=== PATIENT | female | born 1925 | race Caucasian/White ===

== ENCOUNTER 2017-01-15 12:49 | Inpatient (IN) | payer OTHER ==
[~2017-01-15] VITALS: Ht 162.6 cm; Wt 117.9 kg
[2017-01-15] MEDS ORDERED: ACETAMINOPHEN TAB 650MG DOSE (2X325MG) PO PRN (13:00)
[2017-01-15 16:05] VITALS: BP 135/63
[2017-01-15] MEDS ORDERED: GLUCAGON FOR INJ 1 MG VIAL (J1610) SC PRN (17:30)
[2017-01-15] MEDS: HumaLOG INSULIN (NovoLOG) PER UNIT SC SCH ×2 (17:30→21:00)
[2017-01-15] MEDS ORDERED: GLUCOSE 4 GM CHEW TABLET PO PRN (17:30)
[2017-01-15] MEDS ORDERED: DEXTROSE 50% 50 ML SYRINGE IV PRN (17:30)
--- NOTE | 2017-01-15 17:46 | HPE ---
DATE OF ADMISSION: 01/15/2017 PRIMARY CARE PROVIDER: Dr. Simpson HISTORY OF PRESENT ILLNESS: The patient is an 89-year-old female with past medical history significant for diabetes, high cholesterol, hypertension, originally admitted to [facility] last [place], on 01/11/2017, for a right groin abscess. Patient had incision and drainage at [facility] and patient was admitted and patient was started on IV antibiotics. However, patient's wound is not resolving and patient continues to have gradual elevation of white blood cells (WBCs) and patient is transferred to [facility] on 01/15/2017, for higher level of care. PAST MEDICAL HISTORY: 1. Diabetes. 2. Hypertension. 3. Diabetic neuropathy. 4. Hypercholesterolemia. 5. Left breast cancer. PAST SURGICAL HISTORY: 1. Cardiac stent to the right coronary artery. 2. Cholecystectomy. 3. Hysterectomy. 4. Radical left mastectomy. 5. Right knee replacement. SOCIAL HISTORY: Patient quit smoking 20 years ago. Drinks alcohol occasionally. Denied recreational drug use. Patient is a FULL CODE. REVIEW OF SYSTEMS: GENERAL: No fever, no chills. HEENT: No vision changes, no auditory changes. CARDIOVASCULAR: No chest pain, no palpitations. RESPIRATORY: No shortness of breath, no cough, no sputum production. GASTROINTESTINAL (GI): No nausea, no vomiting, no abdominal pain, no diarrhea. MUSCULOSKELETAL: Patient started having abscess near the right inguinal area, started on 01/09/2017, patient went to [facility] on 01/11/2017. NEUROLOGICAL: Decreased sensation bilaterally. LABORATORY DATA: On 01/15/2017: Shows WBC 9.5, hemoglobin 11.3, hematocrit 34.7, platelet count 276. Sodium 139, potassium 5, chloride 100, carbon dioxide 25, glucose 166, BUN 34, creatinine 1.4, GFR 24, BUN 3.4, AST 8, ALT 8. PHYSICAL EXAMINATION: GENERAL: No sign of acute distress, morbidly obese. Patient is alert and oriented times three. HEENT: Normocephalic, atraumatic. Extraocular motors grossly intact. CARDIOVASCULAR: Very distant heart sounds. Positive S1, S2. Regular ate. LUNGS: Decreased breath sounds due to poor respiratory effort. I cannot appreciate any rhonchi or wheezes. GASTROINTESTINAL: Abdomen soft, nontender, nondistended. Bowel sounds present. MUSCULOSKELETAL: There is some yeast infection in the abdominal folds and there is some rashes and skin macerations. There is an abscess wound located at the right inguinal area covered with dry pus. There is marked indentation near the wound, however I cannot palpate any fluctuance. There is some swelling and erythema around the lesions. ASSESSMENT AND PLAN: 1. Right inguinal abscess status post incision and drainage. Patient will be admitted to medical/surgical floor under inpatient status. General surgeon, Dr. Burch, has been consulted to see if patient may benefit from another incision and drainage. Currently we do not have cultures, culture was obtained in [facility], will obtain the records. 2. Diabetes, on sliding scale and consistent carbohydrate diet. 3. Hypertension. At home patient is taking lisinopril and losartan which may not be correct due to patient having impaired renal function, however I am not sure if this is patient's baseline. Those blood pressure medications will be on hold at this moment. 4. Hypercholesterolemia. 5. Chronic musculoskeletal pain. Patient has a Fentanyl patch. 6. Deep venous thrombosis (DVT) prophylaxis. Patient will be on heparin.
[2017-01-15] MEDS ORDERED: BACITAB3 PO (20:13)
[2017-01-15] MEDS ORDERED: PREG50CA PO (20:13)
[2017-01-15] MEDS ORDERED: AMIT10TA PO (20:13)
[2017-01-15] MEDS ORDERED: LISI10TA4 PO (20:13)
[2017-01-15] MEDS ORDERED: OMEP40CA2 PO (20:13)
[2017-01-15] MEDS ORDERED: GEMF600T PO (20:13)
[2017-01-15] MEDS ORDERED: FENT12PA TD (20:22)
[2017-01-15] MEDS ORDERED: NOVO70VL SC (20:22)
[2017-01-15] MEDS ORDERED: ZOCO40TA PO (20:22)
[2017-01-15] MEDS ORDERED: FURO40TA2 PO (20:22)
[2017-01-15] MEDS ORDERED: OMEP20CA3 PO (20:22)
[2017-01-15] MEDS ORDERED: ENOX30IN3 SC (20:22)
[2017-01-15] MEDS ORDERED: VITATAB11 PO (20:22)
[2017-01-15] MEDS ORDERED: FOLI1TAB2 PO (20:22)
[2017-01-15] MEDS ORDERED: ACET30TAB PO (20:22)
[2017-01-15] MEDS ORDERED: INSULANT SC (20:22)
[2017-01-15] MEDS ORDERED: [UNRECOGNIZED DRUG - CODE] IV (20:22)
[2017-01-15] MEDS ORDERED: INSURSD SC (20:22)
[2017-01-15] MEDS ORDERED: AMITRIPTYLINE 10 MG TAB PO SCH (21:00)
[2017-01-15] MEDS ORDERED: ATORVASTATIN 20 MG TAB PO SCH (21:00)
[2017-01-15] MEDS ORDERED: ACETAMINOPH W/CODEINE #3 TAB UD PO PRN (21:15)
[2017-01-15] MEDS: AMITRIPTYLINE 10 MG TAB PO SCH (21:27)
[2017-01-15] MEDS: LACTOBACILLUS ACIDOPHILUS CAP (BACID) PO SCH (21:27)
[2017-01-15] MEDS: PREGABALIN 50 MG CAP (LYRICA) PO SCH (21:28)
[2017-01-15] MEDS: GEMFIBROZIL 600 MG TAB PO SCH (21:28)
[2017-01-15] MEDS: LEVEMIR (INSULIN DETEMIR) 1 UNITS/0.01ML SC SCH (21:29)
[2017-01-15] MEDS: HEPARIN SOD (PORCINE) 5000 UNITS/ML VIAL SC SCH (21:29)
[2017-01-15] MEDS: SIMVASTATIN 40 MG TAB PO SCH (21:35)
[2017-01-15 22:00] VITALS: BP 125/74
[2017-01-16] MEDS: HEPARIN SOD (PORCINE) 5000 UNITS/ML VIAL SC SCH ×3 (05:53→21:19)
[2017-01-16 06:00] VITALS: BP 123/60
[2017-01-16 06:24] LABS: MEAN CORPUSCULAR HEMOGLOBIN 31.8 pg (27.0-33.0); MEAN CORPUSCULAR VOLUME 99.2 fl (80.0-96.0); RED CELL DISTRIBUTION WIDTH 13.2 % (11.5-14.5); WHITE BLOOD COUNT 9.7 K/mm3 (4.0-10.0)
[2017-01-16 06:53] LABS: CALCIUM LEVEL 8.2 MG/DL (8.8-10.2); CREATININE FOR GFR 1.44 MG/DL (0.55-1.02); GLOMERULAR FILTRATION RATE 36.5 (>32); POTASSIUM SERUM 4.5 MEQ/L (3.5-5.1)
--- NOTE | 2017-01-16 08:10 | REP ---
LIMITED PELVIS ULTRASOUND: 01/15/2017. No prior study. Clinical history: The patient had an I D a few days ago, still draining from the right groin according to the patient. Findings: Sonographic evaluation of the right groin soft tissue edematous region showing diffuse subcutaneous edema. There is a pocket measuring 1.7 x 1.1 x 0.4 cm in the right groin and other subcutaneous fluid which appears to be less well-organized and more superficial. Impression: 1. Dumbbell shaped fluid collection 1.7 x 1.1 x 0.4 cm in the right groin with other areas with fairly extensive subcutaneous edema. This may reflect hematoma and/or abscess. Signed by aJciel Gallagher MD 01/16/2017 05:18 P
[2017-01-16] MEDS: LISINOPRIL 10 MG TAB PO SCH (09:00)
[2017-01-16] MEDS: VITAMIN B COMPLEX/VIT C CAP PO SCH (09:20)
[2017-01-16] MEDS: OMEPRAZOLE 20 MG CAP PO SCH (09:21)
[2017-01-16] MEDS: LACTOBACILLUS ACIDOPHILUS CAP (BACID) PO SCH ×2 (09:21→21:18)
[2017-01-16] MEDS: AMITRIPTYLINE 10 MG TAB PO SCH ×2 (09:21→21:18)
[2017-01-16] MEDS: FOLIC ACID 1 MG TAB PO SCH (09:21)
[2017-01-16] MEDS: FUROSEMIDE 40 MG TAB PO SCH (09:21)
[2017-01-16] MEDS: PREGABALIN 50 MG CAP (LYRICA) PO SCH ×2 (09:22→21:18)
[2017-01-16] MEDS: GEMFIBROZIL 600 MG TAB PO SCH ×2 (09:22→21:18)
[2017-01-16] MEDS: HumaLOG INSULIN (NovoLOG) PER UNIT SC SCH ×4 (09:23→21:00)
[2017-01-16] MEDS ORDERED: LIDOCAINE 1% MDV 20ML VIAL SQ ONE (10:30)
[2017-01-16] MEDS ORDERED: LevoFLOXacin IV 750 MG in APPROPRIATE DILUENT 1 EA IV SCH (13:00)
[2017-01-16 14:00] VITALS: BP 139/63
--- NOTE | 2017-01-16 14:34 | IPNPDOC ---
Text Note Date of Service The patient was seen on 01/16/17. NOTE Subjective: Patient is an 89 year old female with a PMHx of DM2, HTN, Diabetic neuropathy, DLP, Left breast CA, who presented to [facility] as a transfer from [facility] because of a right groin abscess. Patient received an I&D and was transferred. Upon evaluation patient was started on antibotics and re-evaluate by surgery here. Patient was seen and examined at the bedside. She denies any fever / chills, denies any pain in the area. Objective: Vitals (See below) General: Lying in bed, no acute distress, comfortable, AAOx3 HEENT: NC, AT CVS: RRR, +S1S2 Lungs: Fair air entry b/l, -w/r/r Abdomen: Soft, ND, NT, +BSx4 Extremities: +PPx4, - Edema, - Calf tenderness, Right inguinal / thigh abscess - positive drainage Assessment and plan: 1. Right inguinal abscess - s/p I&D at [facility] - Presented as a transfer for continued managmetn with antibiotics - Physical reveals an area with drainage and foul odor, no tenderness - Labs reveal no leukocytosis, but mildly elevated CRP - US 01/16: dumbbell shaped fluid collection of 1.7 x 1.1 x 0.4 cm at right groin - c/w Eliza (Day #1) - Dr. Burch on consult - will perform bedside I&D today 2. DM2 - c/w ISS and Levemir 3. HTN - BP well controlled - c/w Lisinopril with holding parameters 4. DLP - c/w Simvastatin and Gemfibrozil 5. Chronic musculoskeletal pain - c/w Fentanyl patch 6. Diabetic neuropathy - c/w Pregabalin 7. Depression - c/w Amitriptyline 8. DVT prophylaxis - c/w Heparin VS,Fishbone, I+O VS, Fishbone, I+O Laboratory Tests 01/16/17 06:15 Red Blood Count 3.71 L, Mean Corpuscular Volume 99.2 H, Mean Corpuscular Hemoglobin 31.8, Mean Corpuscular Hemoglobin Concent 32.0, Red Cell Distribution Width 13.2, Calcium Level 8.2 L Vital Signs Date Time Temp Pulse Resp B/P (MAP) Pulse Ox O2 Delivery O2 Flow Rate FiO2 01/16/17 09:00 102/44 01/16/17 06:00 97.4 61 18 96 Room Air I&O- Last 24 Hours up to 6 AM 01/16/17 06:00 Intake Total 960 ml Output Total 800 ml Balance 160 ml BAN ALMENDAREZ MD January 16, 2017 14:34
[2017-01-16] MEDS: SIMVASTATIN 40 MG TAB PO SCH (21:18)
[2017-01-16] MEDS: LEVEMIR (INSULIN DETEMIR) 1 UNITS/0.01ML SC SCH (21:19)
[2017-01-16 22:00] VITALS: BP 106/68
[2017-01-17] MEDS: HEPARIN SOD (PORCINE) 5000 UNITS/ML VIAL SC SCH ×2 (05:24→14:05)
[2017-01-17 06:00] VITALS: BP 107/56
[2017-01-17 06:50] LABS: MEAN CORPUSCULAR HEMOGLOBIN 31.7 pg (27.0-33.0); MEAN CORPUSCULAR HGB CONC 31.7 g/dl (32.0-36.5); MEAN CORPUSCULAR VOLUME 100.2 fl (80.0-96.0); RED CELL DISTRIBUTION WIDTH 13.2 % (11.5-14.5); WHITE BLOOD COUNT 10.3 K/mm3 (4.0-10.0)
[2017-01-17 07:20] LABS: CALCIUM LEVEL 8.8 MG/DL (8.8-10.2); CREATININE FOR GFR 1.49 MG/DL (0.55-1.02); GLOMERULAR FILTRATION RATE 35.1 (>32); POTASSIUM SERUM 4.8 MEQ/L (3.5-5.1)
[2017-01-17] MEDS: GEMFIBROZIL 600 MG TAB PO SCH (08:04)
[2017-01-17] MEDS: VITAMIN B COMPLEX/VIT C CAP PO SCH (08:04)
[2017-01-17] MEDS: HumaLOG INSULIN (NovoLOG) PER UNIT SC SCH ×3 (08:04→16:42)
[2017-01-17] MEDS: PREGABALIN 50 MG CAP (LYRICA) PO SCH (08:04)
[2017-01-17] MEDS: LACTOBACILLUS ACIDOPHILUS CAP (BACID) PO SCH (08:04)
[2017-01-17] MEDS: OMEPRAZOLE 20 MG CAP PO SCH (08:04)
[2017-01-17 08:05] VITALS: BP 146/65
[2017-01-17] MEDS: LISINOPRIL 10 MG TAB PO SCH (08:05)
[2017-01-17] MEDS: AMITRIPTYLINE 10 MG TAB PO SCH (08:05)
[2017-01-17] MEDS: FOLIC ACID 1 MG TAB PO SCH (08:05)
[2017-01-17] MEDS: FUROSEMIDE 40 MG TAB PO SCH (08:05)
[2017-01-17] MEDS ORDERED: FENTANYL REMOVAL DOCUMENTATION MISC XX SCH (09:00)
[2017-01-17] MEDS ORDERED: fentaNYL 12 MCG/HR PATCH TD SCH (09:00)
--- NOTE | 2017-01-17 12:36 | ED PDOC ---
Provider Note PROGRESS NOTE FOR GENERAL SURGERY 01/17/2017 SUBJECTIVE: Patient reports no discomfort at the right groin area incision and drainage site. Slight staining on the covering dressing. Vital Signs Date Time Temp Pulse Resp B/P (MAP) Pulse Ox O2 Delivery O2 Flow Rate FiO2 01/17/17 09:40 18 Room Air 01/17/17 09:06 18 Room Air 01/17/17 08:05 146/65 01/17/17 06:00 98.4 91 18 107/56 (73) 92 Room Air 01/16/17 22:00 97.6 68 17 106/68 (81) 94 Room Air 01/16/17 14:00 97.2 70 17 139/63 (88) 98 Room Air Intake & Output 01/17/17 06:00 Intake Total 1250 ml Output Total 800 ml Balance 450 ml Laboratory Tests 01/16/17 16:30: Bedside Glucose (Misc Panel) 202H 01/16/17 19:51: Bedside Glucose (Misc Panel) 167H 01/17/17 06:36: Blood Urea Nitrogen 40H, Creatinine 1.49H, Sodium Level 138, Potassium Level 4.8 , Chloride Level 102, Carbon Dioxide Level 30, Calcium Level 8.8, Anion Gap 6L, Glomerular Filtration Rate 35.1, Fasting Glucose 210H 01/17/17 06:37: White Blood Count 10.3H, Red Blood Count 3.65L, Hemoglobin 11.6L, Hematocrit 36.5, Mean Corpuscular Volume 100.2H, Mean Corpuscular Hemoglobin 31.7, Mean Corpuscular Hemoglobin Concent 31.7L, Red Cell Distribution Width 13.2, Platelet Count 312 01/17/17 11:27: Bedside Glucose (Misc Panel) 243H Current Medications Medications (Trade) Dose Ordered Sig/Jessica Route PRN Reason Start Time Stop Time Status Last Admin Dose Admin Amitriptyline HCl (Elavil) 10 mg BID PO 01/15/17 21:00 02/14/17 20:59 01/17/17 08:05 10 MG Fentanyl (Duragesic) 12 mcg Q72H TD 01/17/17 09:00 01/24/17 08:59 01/17/17 09:06 12 MCG Folic Acid (Folic Acid) 1 mg DAILY PO 01/16/17 09:00 02/15/17 08:59 01/17/17 08:05 1 MG Furosemide (Lasix) 40 mg DAILY PO 01/16/17 09:00 02/15/17 08:59 01/17/17 08:05 40 MG Gemfibrozil (Lopid) 600 mg BID PO 01/15/17 21:00 02/14/17 20:59 01/17/17 08:04 600 MG Heparin Sodium (Porcine) (Heparin) 5,000 units Q8H SC 01/15/17 22:00 01/20/17 21:59 01/17/17 05:24 5,000 UNITS Insulin Detemir (Levemir Insulin) 45 units QHS SC 01/15/17 21:00 02/14/17 20:59 01/16/17 21:19 45 UNITS Insulin Human Lispro (HumaLOG INSULIN) SEE PROTOCOL TABLE AC SC 01/15/17 17:30 02/14/17 17:29 01/17/17 12:20 6 UNITS Lactobacillus Acidophilus (Bacid) 1 ea BID PO 01/15/17 21:00 02/14/17 20:59 01/17/17 08:04 1 EA Levofloxacin 750 mg/IV Miscellaneous Supplies 150 ml @ 100 mls/hr Q48H IV 01/16/17 13:00 01/23/17 12:59 01/16/17 13:35 100 MLS/HR Lisinopril (Prinivil) 10 mg DAILY PO 01/16/17 09:00 02/15/17 08:59 01/17/17 08:05 10 MG Omeprazole (PriLOSEC) 20 mg DAILY PO 01/16/17 09:00 02/15/17 08:59 01/17/17 08:04 20 MG Pregabalin (Lyrica) 50 mg BID PO 01/15/17 21:00 01/22/17 20:59 01/17/17 08:04 50 MG Simvastatin (Zocor) 40 mg QHS PO 01/15/17 21:00 02/14/17 20:59 01/16/17 21:18 40 MG Vitamin B Complex/ Vitamin C (Therapeutic B Complex w/C) 1 cap DAILY PO 01/16/17 09:00 02/15/17 08:59 01/17/17 08:04 1 CAP EXAMINATION Patient appears comfortable Right groin, minimal residual erythema. The indurated area continues to decrease and soften up. Wound from the incision drainage site clean, small amount of bleeding when packing was removed. IMPRESSION: Cellulitis and abscess, soft tissue infection over the right groin status post incision and drainage PLAN: Packing was removed. No need to further packed the area as this is small enough to heal accordingly. Just face a dry gauze to catch the drainage from the wound site. Changed daily or as needed if the dressing gets soaked. Patient may shower , may rinse the area with warm water and soap. Thoroughly tight year before reapplying dressing. Follow-up with me when necessary if the wound does not heal appropriately. HELEN IYER MD January 17, 2017 12:36
[2017-01-17] MEDS ORDERED: LEVA750T PO (12:48)
[2017-01-17] MEDS ORDERED: INSUDET SC (15:15)
--- NOTE | 2017-01-17 17:07 | DSES ---
DATE OF ADMISSION: 01/15/2017 DATE OF DISCHARGE: ATTENDING PHYSICIAN: Dr. Santo Boyle DICTATING PHYSICIAN: Dr. Santo Boyle PRIMARY CARE PROVIDER Unknown. REFERRING PHYSICIAN: None. CONSULTING PHYSICIAN: Dr. Burch CONDITION ON DISCHARGE: Stable. FINAL DIAGNOSES: Right inguinal abscess. PROCEDURES: Incision and drainage performed on 01/16/2017. HISTORY OF PRESENT ILLNESS: The patient is an 89-year-old female with a past medical history of diabetes mellitus type 2, hypertension, diabetic neuropathy, dyslipidemia, left breast cancer, who presented to [facility] as a transfer from [facility] because of a right groin abscess. The patient received an incision and drainage and was transferred. Upon evaluation, the patient was started on antibiotics and reevaluated by surgery upon presentation. HOSPITAL COURSE: 1. Right inguinal abscess, status post incision and drainage at [facility], consented for transfer for continued management with antibiotics. Physical revealed an area of drainage and foul odor. No tenderness was noted. Laboratories revealed no leukocytosis but mild elevation in C-reactive protein. Ultrasound completed on 01/16/2017 revealed dumbbell shaped fluid collection of 1.7 x 1.1 x 0.4 cm of the right groin. She was evaluated by Dr. Burch from general surgery, who performed a bedside incision and drainage on 01/16/2017. The patient was put on Levaquin from the date of admission and was discharged with Levaquin to complete the antibiotic course. 2. Diabetes mellitus type 2. She was put on insulin sliding scale and Levemir. 3. Hypertension. Blood pressure remained well controlled. She was put on Lisinopril with holding parameters. 4. Dyslipidemia. Continue simvastatin and gemfibrozil. 5. Chronic musculoskeletal pain. Continue with fentanyl patch. 6. Diabetic neuropathy. Continue with pregabalin. 7. Depression. Continue with amitriptyline. 8. Deep vein thrombosis (DVT) prophylaxis. Continue with heparin. DISCHARGE MEDICATIONS: The patient will be discharged home with the following medications: - acetaminophen two tablets by mouth twice a day as needed for moderate to severe pain - amitriptyline 10 mg by mouth twice a day - vitamin B complex one tablet by mouth daily - fentanyl 12 mcg transdermally every third day - folic acid 1 mg by mouth daily - furosemide 40 mg by mouth daily - gemfibrozil 600 mg by mouth twice a day - NovoLog mix 70/30 45 units subcutaneous in the morning - lactobacillus one tablet by mouth twice a day - Lisinopril 10 mg by mouth daily - omeprazole 20 mg by mouth daily - pregabalin 50 mg by mouth twice a day - simvastatin 40 mg by mouth at night - insulin glargine 45 units subcutaneous at night Medication stopped includes: - clindamycin IV - enoxaparin 30 mg subcutaneous - regular insulin subcutaneous before meals DISCHARGE INSTRUCTIONS: The patient has been advised to followup with her primary care provider and general surgery within the next 7 days. She has been advised to remain compliant with treatment plan and medications and to return to the emergency room if she experiences any problems. Time spent on discharge: 35 minutes.
--- NOTE | 2017-01-18 19:46 | RO ---
DATE OF PROCEDURE: 01/16/2017 PREOPERATIVE DIAGNOSIS: Right groin soft tissue infection with abscess. POSTOPERATIVE DIAGNOSIS: Right groin soft tissue infection with abscess. PROCEDURE: Incision and drainage right groin abscess. SURGEON: Dr. Byron Burch STOPPING BUILDER: ANESTHESIA: Local anesthesia with 1% lidocaine. REMARKS: The patient tolerated the procedure well. A small amount of most likely infected hematoma found after incision and drainage. PROCEDURE NOTE: Ms. Hoover is an 89-year-old female admitted for right groin cellulitis, soft tissue infection with suspected abscess, was initially drained at [facility] last [place] and subsequently admitted but the swelling persisted despite antibiotic therapy and subsequently transferred to our institution for further care. She has persistent indurated area roughly about 4 x 2 cm over the right groin. Ultrasound shows a deeper pocket about 1.7 x 1 cm in the subcutaneous tissue. She was advised for incision and drainage and consent obtained from the patient. The patient has been on antibiotics for the past 5 days. She remains at the bedside. The right groin was prepped and draped with Betadine. The indurated area was infiltrated with local anesthesia. Cruciate incision to remove the necrotic skin and soft tissue from the previous incision and drainage was done, and this was deepened to the depth of the indurated area. There was no purulent drainage but a small amount of murky fluid, likewise old hematoma was evacuated. I used a hemostat to spread around the indurated soft tissue looking for loculated pockets and then temporarily packed the area with a 4 x 4 gauze. This was rechecked twice to make sure of adequate hemostasis. I left a small gauze to tightly pack the area and 4 x 4 dressings and tape was then used to cover incision. The patient tolerated the procedure well.
== END 2017-01-17 19:34 | disposition home or self-care (01) | DRG 603 ==
LOC: EEVIPCON → M MSPAV 16:04
PROVIDERS: ADMIT Internal Medicine; ATTEND Internal Medicine
PROC: 0HD9XZZ Extraction of Perineum Skin, External Approach (ICD-10-PCS; principal; 2017-01-16)
DX: L02.214 Cutaneous abscess of groin (principal); Z68.41 Body mass index [BMI] 40.0-44.9, adult; E11.40 Type 2 diabetes mellitus with diabetic neuropathy, unspecified; I10 Essential (primary) hypertension; E78.00 Pure hypercholesterolemia, unspecified; E66.01 Morbid (severe) obesity due to excess calories; B37.2 Candidiasis of skin and nail; F32.9 Major depressive disorder, single episode, unspecified; M79.1 Myalgia; B95.62 Methicillin resistant Staphylococcus aureus infection as the cause of diseases classified elsewhere; Z85.3 Personal history of malignant neoplasm of breast; Z96.651 Presence of right artificial knee joint; Z90.12 Acquired absence of left breast and nipple; Z87.891 Personal history of nicotine dependence; Z79.4 Long term (current) use of insulin; Z79.899 Other long term (current) drug therapy; Z95.5 Presence of coronary angioplasty implant and graft